=== PATIENT | female | born 1985 | race Caucasian/White ===

== ENCOUNTER 2018-06-22 16:00 | Inpatient (IN) | payer OTHER ==
[~2018-06-22] VITALS: Ht 156.2 cm; Wt 167.0 kg
[2018-07-12] VITALS (18 sets, daily range): BP systolic 80–975; BP diastolic 7–82; PULSE 60–90; TEMP 97.4–98.1
--- NOTE | 2018-07-12 05:45 | NUR ---
Pt arrived on unit for scheduled escorted by . Pt denies any contractions, leaking of fluid or vaginal bleeding at this time. Pt reports normal movement. EFM and toco monitors placed. Vital signs WNL.
[2018-07-12] MEDS ORDERED: CALCIUM 600-D 61 TAB PO (06:31)
[2018-07-12] MEDS ORDERED: VITAMIN C500 MG PO (06:32)
[2018-07-12] MEDS ORDERED: PRENATAL MVI (06:32)
[2018-07-12] MEDS ORDERED: VITAMIN D 1001000 IU (06:32)
[2018-07-12 06:35] LABS: BASO % 0.4 % (0.0-2.0); EOS # 0.1 (0.0-0.7); EOS % 1.3 % (0-4.0); GRAN # 6.9 (1.4-6.5); GRAN % 62.1 % (42.2-75.2); HEMOGLOBIN 12.2 g/dl (12.5-16.0); LYMPH % 27.1 % (20.0-51.0); MEAN CELL VOLUME 88 fl (80.0-100.0); MEAN CORPUSCULAR HEMOGLOBIN 30 pg (27.0-31.0); MEAN CORPUSCULAR HGB CONC 34 g/dl (33.0-37.0); MEAN PLATELET VOLUME 10.4 fl (7.4-10.4); MONO # 0.9 (0.1-0.6); MONO % 8.5 % (1.7-9.3); PLATELET COUNT 201 K/mm3 (130-400); RED BLOOD COUNT 4.06 M/mm3 (4.10-5.30); REDCELL DISTRIBUTION WIDTH-CV 13.5 % (11.5-14.5)
[2018-07-12 06:49] LABS: HEMATOCRIT 35.8 % (37.0-47.0)
[2018-07-13 04:00] VITALS: BP 104/56; PULSE 86
[2018-07-13 06:47] LABS: MEAN CELL VOLUME 92 fl (80.0-100.0); MEAN CORPUSCULAR HGB CONC 33 g/dl (33.0-37.0); MEAN PLATELET VOLUME 10.4 fl (7.4-10.4); PLATELET COUNT 184 K/mm3 (130-400); RED BLOOD COUNT 3.25 M/mm3 (4.10-5.30)
[2018-07-13 07:07] LABS: HEMATOCRIT 29.8 % (37.0-47.0); HEMOGLOBIN 9.7 g/dl (12.5-16.0); MEAN CORPUSCULAR HEMOGLOBIN 30 pg (27.0-31.0)
[2018-07-13 07:30] VITALS: BP 105/60; PULSE 81; TEMP 97.6
--- NOTE | 2018-07-13 09:10 | NUR ---
Initial visit; Parents thanked learning coordinator for offering congratulations and God's blessings for the of their daughter. [employer]ric[employer] Supervisor thanked them for choosing [facility]
[2018-07-13 17:00] VITALS: BP 109/61; PULSE 89; TEMP 97.9
[2018-07-13 21:10] VITALS: BP 120/68; PULSE 89; TEMP 98.2
[2018-07-14 06:50] VITALS: BP 107/61; PULSE 75; TEMP 98.2
--- NOTE | 2018-07-14 10:45 | NUR ---
Patient was indisposed.
[2018-07-14 16:24] VITALS: BP 125/76; PULSE 89; TEMP 97.5
--- NOTE | 2018-07-14 19:23 | NUR ---
Bedside report received from off going RN. Care taken over by this RN.
[2018-07-14 19:59] VITALS: BP 115/69; PULSE 83; TEMP 97.9
[2018-07-15 07:51] VITALS: BP 130/72; PULSE 85
[2018-07-15] MEDS ORDERED: IBU800 M1 PO (08:53)
[2018-07-15] MEDS ORDERED: PERCOCET 325 MG1 TA2 PO (08:53)
--- NOTE | 2018-07-15 15:00 | NUR ---
PATIENT DISCHARGE EDUCATION COMPLETED, PARENTS STATE UNDERSTANDING
== END 2018-07-15 15:25 | disposition home or self-care (01) | DRG 788 ==
LOC: OB 07-12 05:49 → LDR 07-12 09:22 → OB 07-15 15:25
PROVIDERS: ADMIT Student in an Organized Health Care Education/Training Program
PROC: 10D00Z1 Extraction of Products of Conception, Low, Open Approach (ICD-10-PCS; principal; 2018-07-12)
DX: O75.89 Other specified complications of labor and delivery (principal); Z3A.39 39 weeks gestation of pregnancy; Z37.0 Single live birth; Q74.0 Other congenital malformations of upper limb(s), including shoulder girdle; M85.80 Other specified disorders of bone density and structure, unspecified site; E55.9 Vitamin D deficiency, unspecified; O99.824 Streptococcus B carrier state complicating childbirth
CPT/HCPCS: J0690; J1885; J2175; J2270; J2370; J2405; J2590; J3010; J7120